=== PATIENT | male | born 1965 | race Caucasian/White ===

== ENCOUNTER → 2016-04-03 | Outpatient (CLI) | payer MEDICARE ==
[~2016-04-03] MED LIST: ALPR0.5T10 PO; CYCL10TA2 PO; ESOM40CA PO; GLIM4TAB PO; HYDR-2666 PO; ONDA4TAB7 PO; PROAIR HFA8.5 GM IH
--- NOTE | 2016-04-03 11:34 | KCIC ---
MRI lumbar spine without contrast Indication: Low back pain and left lower extremity radiculopathy. Multiplanar multi sequence imaging of the lumbar spine was performed without contrast. Curvature of the lumbar spine is normal. Minimal retrolisthesis of L4 on L5 is seen. The vertebral body heights are well maintained. No acute compression fracture or geographic marrow lesion is identified. There is normal height and hydration to the lumbar discs apart from mild desiccation and disc space narrowing at L4-5 level. L1-2: No central canal or neural foraminal stenosis is detected. L2-3: Unremarkable. L3-4: Unremarkable. L4-5: There is wide-based midline disc bulge producing slight indentation upon the ventral thecal sac, however, no central canal or neural foraminal stenosis is identified. L5-S1: Unremarkable. The paraspinous tissues are unremarkable. Impression: Mild L4-5 degenerative disc disease and mild wide-based midline disc bulge. No central canal or neural foraminal stenosis is detected. Electronically signed by: Jarek Khan MD (Apr 03, 2016 11:33:34)
== END | disposition home or self-care (01) ==
LOC: KCIC MRI 10:49
PROVIDERS: ATTEND Nurse Practitioner Family
DX: M54.17 Radiculopathy, lumbosacral region (principal)
CPT/HCPCS: 72148

== ENCOUNTER 2016-06-09 22:36 | Emergency (ER) | payer MEDICARE ==
[~2016-06-09] VITALS: Ht 177.8 cm; Wt 83.9 kg
[2016-06-09] MEDS ORDERED: IPRATRPIUM/ALBUTEROL 0.5/2.5MG 3 ML NEBU. NEB ONE (23:15)
[2016-06-09 23:38] LABS: CALCIUM 8.4 mg/dL (8.5-10.1); GFR 79.4; POTASSIUM 3.3 mmol/L (3.5-5.1)
--- NOTE | 2016-06-09 23:39 | PHYS DOC ---
Past Medical History Past Medical History: Asthma, Bronchitis, Other Additional Past Medical Histor: non-hodgkins lymphoma - remission, histoplasmosis Past Surgical History: Tonsillectomy, Other Additional Past Surgical Histo: bilat arthoscopic knee, tumor removal LL back, bronch., portacath, biopsie Alcohol Use: None Drug Use: None Adult General Chief Complaint Chief Complaint: SHORTNESS OF BREATH HPI HPI Patient is a 50 year old male who presents with cough and central chest tightness for the past 1.5 week. Started with cough, dyspnea, f/c, myalgia. He saw his PCP and was placed on prednisone burst, that he finished yesterday. He was improving, but symptoms worsened today. He denies current fever, abdominal pain, leg pain or swelling, or hemoptysis. Review of Systems Review of Systems Constitutional: Had fever and chills [] Eyes: Denies change in visual acuity, redness, or eye pain [] HENT: Denies nasal congestion or sore throat [] Respiratory: Has cough and shortness of breath [] Cardiovascular: No additional information not addressed in HPI [] GI: Denies abdominal pain, nausea, vomiting, bloody stools or diarrhea [] : Denies dysuria or hematuria [] Musculoskeletal: Denies back pain or joint pain [] Integument: Denies rash or skin lesions [] Neurologic: Denies headache, focal weakness or sensory changes [] Endocrine: Denies polyuria or polydipsia [] Current Medications Current Medications Current Medications Medications (Trade) Dose Ordered Sig/Cece Start Time Stop Time Status Last Admin Dose Admin Albuterol/ Ipratropium (Duoneb) 3 ml 1X ONCE 06/09/16 23:15 06/09/16 23:16 DC 06/10/16 00:04 3 ML Allergies Allergies Allergies Coded Allergies Type Severity Reaction Last Updated Verified prochlorperazine edisylate Allergy Intermediate Nausea and Vomiting 04/17/13 Yes prochlorperazine maleate Allergy Intermediate Nausea and Vomiting 04/17/13 Yes Physical Exam Physical Exam Constitutional: Well developed, well nourished, no acute distress, non-toxic appearance. [] HENT: Normocephalic, atraumatic, bilateral external ears normal, oropharynx moist, no oral exudates, nose normal. [] Eyes: PERRLA, EOMI, conjunctiva normal, no discharge. [] Neck: Normal range of motion, supple, no stridor. [] Cardiovascular:Heart rate regular rhythm, no murmur [] Lungs & Thorax: Mild bilateral wheezing, normal respiratory effort, speaking in full sentences, no crackles [] Abdomen: Bowel sounds normal, soft, no tenderness. [] Skin: Warm, dry, no erythema, no rash. [] Back: Normal range of motion. [] Extremities: No tenderness, ROM intact, no edema, no palpable cord. [] Neurologic: Alert and oriented X 3, normal motor function, normal sensory function, no focal deficits noted. [] Psychologic: Affect normal, judgement normal, mood normal. [] Current Patient Data Vital Signs Vital Signs Date Time Temp Pulse Resp B/P Pulse Ox O2 Delivery O2 Flow Rate FiO2 06/10/16 00:05 97 Room Air 06/09/16 22:45 98.6 85 25 155/82 98.6 Lab Values Laboratory Tests Test 06/09/16 23:05 Sodium Level 141mmol/L (136-145) Potassium Level 3.3mmol/L (3.5-5.1) L Chloride Level 105mmol/L (98-107) Carbon Dioxide Level 29mmol/L (21-32) Anion Gap 7 (6-14) Blood Urea Nitrogen 18mg/dL (8-26) Creatinine 1.0mg/dL (0.7-1.3) Estimated GFR (Cockcroft-Gault) 79.4 Glucose Level 180mg/dL (70-99) H Calcium Level 8.4mg/dL (8.5-10.1) L Troponin I Quantitative < 0.017ng/mL (0.000-0.055) Laboratory Tests 06/09/16 23:05 EKG EKG EKG as interpreted by me with sinus rhythm with right bundle branch block, rate 85, no ST-T changes, normal intervals, no ectopy Radiology/Procedures Radiology/Procedures Chest x-ray as interpreted by me with no acute cardiopulmonary disease process; similar to prior imaging with chronic prominent interstitial markings in the left lung field and right lower lung field Course & Med Decision Making Course & Med Decision Making Pertinent Labs and Imaging studies reviewed. (See chart for details) Workup is unremarkable. He is feeling better after medications here. Suspect viral upper respiratory infection causing asthma exacerbation. Will place on steroid taper due to continued symptoms. Return precautions given. He understands and agrees with plan. Dragon Disclaimer Dragon Disclaimer This electronic medical record was generated, in whole or in part, using a voice recognition dictation system. Departure Departure Impression: Primary Impression: Asthma exacerbation Disposition: 01 HOME, SELF-CARE Condition: STABLE Referrals: ELI AL (PCP) Patient Instructions: Asthma, Adult, [id number] Additional Instructions: Take prednisone as prescribed. Continue breathing treatments at home as needed for symptoms. Follow-up with your primary care doctor within one week. Return for any concerns. Scripts Prednisone 10 Mg [id number] Mg PO DAILY #30 TAB Take 50 mg (5 pills) daily for 2 days, then take 40 mg (4 pills) daily for 2 days, then take 30 mg (3 pills) daily for 2 days, then take 20 mg (2 pills) daily for 2 days, then take 10 mg for 2 days. Prov:Tammy HDEZ MD 06/09/16 Tammy HDEZ MD Jun 09, 2016 23:39
[2016-06-09] MEDS ORDERED: PRED-220 PO (23:57)
[2016-06-10 00:15] VITALS: BP 152/77
--- NOTE | 2016-06-10 00:24 | EKG ---
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
--- NOTE | 2016-06-10 08:07 | RAD ---
Chest, 2 views, 06/09/2016: History: Cough Comparison is made to a study from 04/04/2015. The heart size and pulmonary vascularity are normal. There are surgical clips anteromedially in the left upper chest. There is mild associated volume loss in the left chest. There is mild unchanged prominence of the pulmonary markings in the left upper lobe, probably due to scarring. No acute infiltrate is seen. There is a suggestion of a calcified pleural plaque along the dome of the left hemidiaphragm. There is no evidence of pleural fluid. Mild spurring is present in the spine. IMPRESSION: 1. Chronic findings as described above. 2. No acute abnormality is detected.
== END 2016-06-10 00:40 | disposition home or self-care (01) ==
LOC: ER 22:36
DX: J45.901 Unspecified asthma with (acute) exacerbation (principal); M79.1 Myalgia; Z88.8 Allergy status to other drugs, medicaments and biological substances; Z85.72 Personal history of non-Hodgkin lymphomas
CPT/HCPCS: 36415; 71020; 80048; 84484; 93005; 94640; 99285; J7620

== ENCOUNTER → 2016-11-05 | Outpatient (CLI) | payer MEDICARE ==
[~2016-11-05] MED LIST changes: -HYDR-2666 PO; +HYDR-2758 PO; +PRED-220 PO
--- NOTE | 2016-11-05 11:00 | KCIC ---
Examination: 2 views of the chest HISTORY: History of cough, dyspnea, smoking COMPARISON: 04/04/2015 FINDINGS: Low lung volumes accentuate heart and pulmonary vascularity. Mild prominent appearing bilateral interstitial lung markings likely chronic interstitial changes are similar to prior exam. IMPRESSION: Prominent appearing bilateral interstitial lung markings likely chronic interstitial changes similar to prior exam. Electronically signed by: Shahriar Weems MD (11/05/2016 10:57 AM) [facility]
== END | disposition home or self-care (01) ==
LOC: KCIC 10:12
PROVIDERS: ATTEND Family Medicine
DX: R91.8 Other nonspecific abnormal finding of lung field (principal); R05 Cough; R06.00 Dyspnea, unspecified; F17.200 Nicotine dependence, unspecified, uncomplicated
CPT/HCPCS: 71020

== ENCOUNTER 2017-01-08 00:29 | Emergency (ER) | payer MEDICARE ==
[~2017-01-08] VITALS: Ht 180.3 cm; Wt 83.0 kg
[2017-01-08] MEDS ORDERED: IV NORMAL SALINE 1000ML BAG 1,000 ML IV SCH (00:45)
--- NOTE | 2017-01-08 00:57 | PHYS DOC ---
Past Medical History Past Medical History: Asthma, Bronchitis, Diabetes-Type II, GERD, High Cholesterol, Hypertension, Other Additional Past Medical Histor: non-hodgkins lymphoma - remission, histoplasmosis Past Surgical History: Tonsillectomy, Other Additional Past Surgical Histo: bilat arthoscopic knee, tumor removal LL back, bronch., portacath, biopsy Smoking: Cigarettes Alcohol Use: None Drug Use: None Adult General Chief Complaint Chief Complaint: Palpitations HPI HPI Patient is a 51 year old male who presents with heart palpitations. He is followed by his PCP in [place], [place]. He states tonight at around 1800 p.m. he noticed his heart beating fast. He states he's had intermittent episodes of this in the past. This seems to be more persistent tonight. No recent travel. No chest pain. No shortness of breath. No recent fever sore throat cough or cold symptoms. FH: remote CAD (grandparents); POS tobacco; POS DM and HTN. Review of Systems Review of Systems Constitutional: Denies fever or chills Eyes: Denies change in visual acuity, redness, or eye pain HENT: Denies nasal congestion or sore throat Respiratory: Denies cough or shortness of breath Cardiovascular: No chest pain GI: Denies abdominal pain, nausea, vomiting, bloody stools or diarrhea : Denies dysuria or hematuria Musculoskeletal: Denies back pain or joint pain Integument: Denies rash or skin lesions Neurologic: Denies headache, focal weakness or sensory changes Endocrine: Denies polyuria or polydipsia All other systems were reviewed and found to be within normal limits, except as documented in this note. Family History Family History Remote CAD (in grandparents) Current Medications Current Medications Current Medications Medications (Trade) Dose Ordered Sig/Cece Start Time Stop Time Status Last Admin Dose Admin Sodium Chloride 1,000 ml @ 100 mls/hr Q10H 01/08/17 00:45 01/08/17 10:44 01/08/17 01:24 100 MLS/HR Allergies Allergies Allergies Coded Allergies Type Severity Reaction Last Updated Verified prochlorperazine edisylate Allergy Intermediate Nausea and Vomiting 04/17/13 Yes prochlorperazine maleate Allergy Intermediate Nausea and Vomiting 04/17/13 Yes Physical Exam Physical Exam Constitutional: Well developed, well nourished, no acute distress, non-toxic appearance. HENT: Normocephalic, atraumatic, bilateral external ears normal, oropharynx moist, no oral exudates, nose normal. Eyes: PERRLA, EOMI, conjunctiva normal, no discharge. Neck: Normal range of motion, no tenderness, supple, no stridor. Cardiovascular:Heart rate regular rhythm, tachycardic, no murmur Lungs & Thorax: Bilateral breath sounds clear to auscultation Abdomen: Bowel sounds normal, soft, no tenderness, no masses, no pulsatile masses. Skin: Warm, dry, no erythema, no rash. Back: No tenderness, no CVA tenderness. Extremities: No tenderness, no cyanosis, no clubbing, ROM intact, no edema. No calf pain, swelling or tenderness. Neurologic: Alert and oriented X 3, normal motor function, normal sensory function, no focal deficits noted. Psychologic: Affect normal, judgement normal, mood normal. Current Patient Data Vital Signs Vital Signs Date Time Temp Pulse Resp B/P (MAP) Pulse Ox O2 Delivery O2 Flow Rate FiO2 01/08/17 00:35 98.0 93 20 126/70 (88) 97 Room Air 98.0 Lab Values Laboratory Tests Test 01/08/17 01:15 White Blood Count 13.7 x10^3/uL (4.0-11.0) H Red Blood Count 5.49 x10^6/uL (4.30-5.70) Hemoglobin 15.8 g/dL (13.0-17.5) Hematocrit 47.6 % (39.0-53.0) Mean Corpuscular Volume 87 fL (79-100) Mean Corpuscular Hemoglobin 29 pg (25-35) Mean Corpuscular Hemoglobin Concent 33 g/dL (31-37) Red Cell Distribution Width 13.5 % (11.5-14.5) Platelet Count 273 x10^3/uL (140-400) Neutrophils (%) (Auto) 62 % (31-73) Lymphocytes (%) (Auto) 27 % (24-48) Monocytes (%) (Auto) 8 % (0-9) Eosinophils (%) (Auto) 2 % (0-3) Basophils (%) (Auto) 1 % (0-3) Neutrophils # (Auto) 8.5 x10^3uL (1.8-7.7) H Lymphocytes # (Auto) 3.6 x10^3/uL (1.0-4.8) Monocytes # (Auto) 1.1 x10^3/uL (0.0-1.1) Eosinophils # (Auto) 0.3 x10^3/uL (0.0-0.7) Basophils # (Auto) 0.1 x10^3/uL (0.0-0.2) D-Dimer (Roxane) < 0.27 ug/mlFEU Sodium Level 143 mmol/L (136-145) Potassium Level 4.2 mmol/L (3.5-5.1) Chloride Level 104 mmol/L (98-107) Carbon Dioxide Level 29 mmol/L (21-32) Anion Gap 10 (6-14) Blood Urea Nitrogen 12 mg/dL (8-26) Creatinine 0.8 mg/dL (0.7-1.3) Estimated GFR (Cockcroft-Gault) 102.3 BUN/Creatinine Ratio 15 (6-20) Glucose Level 143 mg/dL (70-99) H Calcium Level 9.5 mg/dL (8.5-10.1) Magnesium Level 2.0 mg/dL (1.8-2.4) Total Bilirubin 0.2 mg/dL (0.2-1.0) Aspartate Amino Transferase (AST) 17 U/L (15-37) Alanine Aminotransferase (ALT) 29 U/L (16-63) Alkaline Phosphatase 100 U/L (46-116) Creatine Kinase 59 U/L (39-308) Creatine Kinase MB (Mass) < 0.5 ng/mL (0.0-3.6) Creatine Kinase MB Relative Index 0.8 % (0-4) Troponin I Quantitative < 0.017 ng/mL (0.000-0.055) MT-Wgq-N-Type Natriuretic Peptide 46 pg/mL (0-124) Total Protein 7.5 g/dL (6.4-8.2) Albumin 3.7 g/dL (3.4-5.0) Albumin/Globulin Ratio 1.0 (1.0-1.7) Thyroid Stimulating Hormone (TSH) 1.759 uIU/mL (0.358-3.74) Laboratory Tests 01/08/17 01:15 Laboratory Tests 01/08/17 01:15 EKG EKG EKG interpreted by myself at 0048 am: NSR rate 82, IVCD; non specific ST changes. NO change compared to EKG dated 06/09/16 Radiology/Procedures Radiology/Procedures CXR interpreted by myself at 0115 AM: normal mediastinum; normal cardiac silhouette, Atelectasis RML/or scarring (UNCHANGED from CXR 04/04/2015) Course & Med Decision Making Course & Med Decision Making Evaluated patient upon arrival. He is sinus tachycardic. EKG unchanged from prior. Will check lab , D dimer and thyroid. At 0230 AM: patient watching TV. Family in room. BP 121/67; P 91. reviewed findings. Repeat Trop 0.00; They will call PCP in am to set up outpatient event monitoring. differential includes thyroid disease; cardiac disease, pulmonary emboli; electrolyte disorder I have spoken with the patient and/or caregivers. I have explained the patient' s condition, diagnosis and treatment plan based on the information available to me at this time. I have answered the patient's and/or caregiver's questions and addressed any concerns. The patient and/or caregivers have as good an understanding of the patient's diagnosis, condition and treatment plan as can be expected at this point. The patient's condition is stable and appropriate for discharge from the emergency department. The patient will pursue further outpatient evaluation with the primary care physician or other designated or consulting physician as outlined in the discharge instructions. The patient and/or caregivers are agreeable to this plan of care and follow-up instructions have been explained in detail. The patient and/or caregivers have received these instructions in written format and have expressed an understanding of the discharge instructions. The patient and/or caregivers are aware that any significant change in condition or worsening of symptoms should prompt an immediate return to this or the closest emergency department or a call to 911. Dragon Disclaimer Dragon Disclaimer This electronic medical record was generated, in whole or in part, using a voice recognition dictation system. Departure Departure Impression: Primary Impression: Palpitations Disposition: 01 HOME, SELF-CARE Condition: STABLE Referrals: ELI AL (PCP) Patient Instructions: Palpitations Additional Instructions: YOUR BLOOD WORK WAS NORMAL HERE. CALL YOUR DOCTOR IN THE AM TO SET UP EVENT MONITORING. NEWTON HERNANDEZ MD Jan 08, 2017 00:57
[2017-01-08 01:22] LABS: BASO # 0.1 x10^3/uL (0.0-0.2); BASO % 1 % (0-3); EOS % 2 % (0-3); HEMATOCRIT 47.6 % (39.0-53.0); HEMOGLOBIN 15.8 g/dL (13.0-17.5); LYMPH # 3.6 x10^3/uL (1.0-4.8); LYMPH % 27 % (24-48); MEAN CORPUSCULAR HEMOGLOBIN 29 pg (25-35); MEAN CORPUSCULAR HGB CONC 33 g/dL (31-37); MEAN CORPUSCULAR VOLUME 87 fL (79-100); MONO % 8 % (0-9); NEUT % 62 % (31-73); PLATELET COUNT 273 x10^3/uL (140-400); RED BLOOD COUNT 5.49 x10^6/uL (4.30-5.70); RED CELL DISTRIBUTION WIDTH 13.5 % (11.5-14.5); WHITE BLOOD COUNT 13.7 x10^3/uL (4.0-11.0)
[2017-01-08 01:35] LABS: CALCIUM 9.5 mg/dL (8.5-10.1); CREATININE 0.8 mg/dL (0.7-1.3); GFR 102.3; POTASSIUM 4.2 mmol/L (3.5-5.1)
[2017-01-08 01:41] LABS: ALBUMIN 3.7 g/dL (3.4-5.0); TOTAL BILIRUBIN 0.2 mg/dL (0.2-1.0); TOTAL PROTEIN 7.5 g/dL (6.4-8.2)
[2017-01-08 01:48] LABS: CREATINE KINASE 59 U/L (39-308)
[2017-01-08 01:53] LABS: CKMB MASS < 0.5 ng/mL (0.0-3.6)
[2017-01-08 02:38] VITALS: BP 118/65
--- NOTE | 2017-01-08 06:21 | EKG ---
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
--- NOTE | 2017-01-08 07:30 | RAD ---
EXAM: Chest one view. HISTORY: Palpitations, smoking history, lung disease. COMPARISON: 11/05/2016. FINDINGS: A frontal view of the chest is obtained. There are no confluent infiltrates. There is no pneumothorax or pleural effusion. The heart is not enlarged. Surgical clips project along the left superior mediastinal border. There are stable mild interstitial opacities and mild volume loss on the left. Calcified mediastinal lymph nodes are likely secondary to old granulomatous disease. IMPRESSION: 1. Correlate for prior partial pneumonectomy on the left. No acute infiltrates.
== END 2017-01-08 03:05 | disposition home or self-care (01) ==
LOC: ER 00:29
DX: R00.2 Palpitations (principal); R00.0 Tachycardia, unspecified; J45.909 Unspecified asthma, uncomplicated; E11.9 Type 2 diabetes mellitus without complications; K21.9 Gastro-esophageal reflux disease without esophagitis; E78.00 Pure hypercholesterolemia, unspecified; I10 Essential (primary) hypertension; F17.210 Nicotine dependence, cigarettes, uncomplicated; Z88.8 Allergy status to other drugs, medicaments and biological substances
CPT/HCPCS: 36415; 71010; 80053; 82553; 83735; 83880; 84436; 84443; 84484; 85025; 85379; 93005; 96360; 96361; 99285; J7030

== ENCOUNTER 2018-11-29 01:03 | Emergency (ER) | payer MEDICARE ==
[~2018-11-29] VITALS: Ht 180.3 cm; Wt 83.9 kg
[~2018-11-29 01:03] MED LIST changes: +ALBU2.5V8 IH; -HYDR-2758 PO; +HYDR-2761 PO; -PROAIR HFA8.5 GM IH
--- NOTE | 2018-11-29 01:32 | PHYS DOC ---
Past Medical History Past Medical History: Asthma, Bronchitis, Diabetes-Type II, GERD, High Cholesterol, Hypertension, Other Additional Past Medical Histor: non-hodgkins lymphoma - remission, histoplasmosis, back pain Past Surgical History: Tonsillectomy, Other Additional Past Surgical Histo: bilat arthoscopic knee, tumor removal LL back, bronch., portacath, biopsy Alcohol Use: None Drug Use: None Adult General Chief Complaint Chief Complaint: SHORTNESS OF BREATH HPI HPI Patient is a 53-year-old male who presents with complaint of productive cough for the last couple of weeks. He states that over the last few days he has started to get some shortness of breath associated with the cough and tonight shortness of breath and gotten so severe that it woke him up from sleep and he sat bolt upright in bed, severely short of breath. He states that the shortness of breath is a little bit better at this time. He does indicate the shortness of breath is worsened with exertion. He denies any chest pain. He also denies any lower extremity pain or swelling. Patient is not aware of any fever. He states the cough has been productive of yellow sputum. He is concerned that he has either bronchitis or pneumonia.[] Review of Systems Review of Systems Constitutional: Denies fever or chills [] Respiratory: Positive cough and shortness of breath [] Cardiovascular: No additional information not addressed in HPI [] GI: Denies abdominal pain, nausea, vomiting or diarrhea [] Integument: Denies rash or skin lesions [] Neurologic: Denies headache, focal weakness or sensory changes [] All other systems were reviewed and found to be within normal limits, except as documented in this note. Current Medications Current Medications Current Medications Medications (Trade) Dose Ordered Sig/Cece Start Time Stop Time Status Last Admin Dose Admin Albuterol/ Ipratropium (Duoneb) 3 ml 1X ONCE 11/29/18 04:00 11/29/18 04:01 DC 11/29/18 04:01 3 ML Ceftriaxone Sodium (Rocephin) 1 gm 1X ONCE 11/29/18 03:30 11/29/18 03:31 DC 11/29/18 04:05 1 GM Allergies Allergies Allergies Coded Allergies Type Severity Reaction Last Updated Verified prochlorperazine edisylate Allergy Intermediate Nausea and Vomiting 04/17/13 Yes prochlorperazine maleate Allergy Intermediate Nausea and Vomiting 04/17/13 Yes Physical Exam Physical Exam Constitutional: Well developed, well nourished, no acute distress, non-toxic appearance. [] HENT: Normocephalic, atraumatic, bilateral external ears normal, oropharynx moist, no oral exudates, nose normal. [] Eyes: PERRLA, EOMI, conjunctiva normal, no discharge. [] Neck: Normal range of motion, no tenderness, supple, no stridor. [] Cardiovascular: Mildly tachycardic rate with regular rhythm[] Lungs & Thorax: Slightly diminished breath sounds noted in the lung bases with fine rhonchi to auscultation [] Abdomen: Bowel sounds normal, soft, no tenderness. [] Skin: Warm, dry, no erythema, no rash. [] Extremities: No tenderness, no cyanosis, no clubbing, ROM intact, no edema. [] Neurologic: Alert and oriented X 3, no focal deficits noted. [] Current Patient Data Vital Signs Vital Signs Date Time Temp Pulse Resp B/P (MAP) Pulse Ox O2 Delivery O2 Flow Rate FiO2 11/29/18 04:30 91 156/88 (110) 93 Room Air 11/29/18 02:30 19 11/29/18 01:05 97.8 97.8 Lab Values Laboratory Tests Test 11/29/18 01:25 11/29/18 02:00 White Blood Count 12.4 x10^3/uL (4.0-11.0) H Red Blood Count 5.85 x10^6/uL (4.30-5.70) H Hemoglobin 16.7 g/dL (13.0-17.5) Hematocrit 49.8 % (39.0-53.0) Mean Corpuscular Volume 85 fL (79-100) Mean Corpuscular Hemoglobin 29 pg (25-35) Mean Corpuscular Hemoglobin Concent 34 g/dL (31-37) Red Cell Distribution Width 14.7 % (11.5-14.5) H Platelet Count 268 x10^3/uL (140-400) Neutrophils (%) (Auto) 66 % (31-73) Lymphocytes (%) (Auto) 24 % (24-48) Monocytes (%) (Auto) 7 % (0-9) Eosinophils (%) (Auto) 2 % (0-3) Basophils (%) (Auto) 1 % (0-3) Neutrophils # (Auto) 8.2 x10^3/uL (1.8-7.7) H Lymphocytes # (Auto) 2.9 x10^3/uL (1.0-4.8) Monocytes # (Auto) 0.9 x10^3/uL (0.0-1.1) Eosinophils # (Auto) 0.3 x10^3/uL (0.0-0.7) Basophils # (Auto) 0.1 x10^3/uL (0.0-0.2) D-Dimer (Roxane) 0.28 ug/mlFEU (0.00-0.50) Sodium Level 143 mmol/L (136-145) Potassium Level 3.8 mmol/L (3.5-5.1) Chloride Level 103 mmol/L (98-107) Carbon Dioxide Level 30 mmol/L (21-32) Anion Gap 10 (6-14) Blood Urea Nitrogen 13 mg/dL (8-26) Creatinine 0.9 mg/dL (0.7-1.3) Estimated GFR (Cockcroft-Gault) 88.6 BUN/Creatinine Ratio 14 (6-20) Glucose Level 243 mg/dL (70-99) H Lactic Acid Level 2.6 mmol/L (0.4-2.0) H Calcium Level 9.9 mg/dL (8.5-10.1) Total Bilirubin 0.2 mg/dL (0.2-1.0) Aspartate Amino Transferase (AST) 22 U/L (15-37) Alanine Aminotransferase (ALT) 27 U/L (16-63) Alkaline Phosphatase 117 U/L (46-116) H Troponin I Quantitative < 0.017 ng/mL (0.000-0.055) BQ-Rmz-F-Type Natriuretic Peptide 55 pg/mL (0-124) Total Protein 8.4 g/dL (6.4-8.2) H Albumin 4.2 g/dL (3.4-5.0) Albumin/Globulin Ratio 1.0 (1.0-1.7) Urine Collection Type Unknown Urine Color Yellow Urine Clarity Clear Urine pH 6.0 Urine Specific [place] >=1.030 Urine Protein Negative mg/dL (NEG-TRACE) Urine Glucose (UA) >=1000 mg/dL (NEG) Urine Ketones (Stick) Negative mg/dL (NEG) Urine Blood Negative (NEG) Urine Nitrite Negative (NEG) Urine Bilirubin Negative (NEG) Urine Urobilinogen Dipstick 1.0 mg/dL (0.2 mg/dL) Urine Leukocyte Esterase Negative (NEG) Urine RBC Occ /HPF (0-2) Urine WBC Rare /HPF (0-4) Urine Squamous Epithelial Cells Occ /LPF Urine Bacteria 0 /HPF (0-FEW) Urine Mucus Slight /LPF Laboratory Tests 11/29/18 01:25 Laboratory Tests 11/29/18 01:25 EKG EKG [] Radiology/Procedures Radiology/Procedures [] Course & Med Decision Making Course & Med Decision Making Pertinent Labs and Imaging studies reviewed. (See chart for details) Patient moved to room upon arrival was evaluated by your medical staff after which an IV was established and blood work was drawn. A chest x-ray was obtained and demonstrates findings of interstitial infiltrates. Patient was given a total of 2 breathing treatments while in the emergency room and did report some improvement in symptoms. His oxygen saturation on room air remains 94-95%. I did discuss option of admission versus discharge home with outpatient antibiotics and patient indicates that he would prefer to be discharged home. Patient instructed to follow-up with his primary care provider in the next week and return to the emergency room immediately if symptoms worsen. Dragon Disclaimer Dragon Disclaimer This electronic medical record was generated, in whole or in part, using a voice recognition dictation system. Departure Departure Impression: Primary Impression: Community acquired pneumonia Disposition: 01 HOME, SELF-CARE Condition: STABLE Referrals: ELI AL (PCP) Patient Instructions: Pneumonia, Adult Scripts Levofloxacin (LEVAQUIN) 750 Mg Tablet 1 TAB PO DAILY for 10 Days, #10 TAB 0 Refills Prov: PILO BENITEZ Jr. DO 11/29/18 Problem Qualifiers Primary Impression: Community acquired pneumonia Laterality: unspecified laterality Qualified Codes: J18.9 - Pneumonia, unspecified organism PILO BENITEZ Jr. DO Nov 29, 2018 01:32
[2018-11-29 01:38] LABS: BASO # 0.1 x10^3/uL (0.0-0.2); BASO % 1 % (0-3); EOS # 0.3 x10^3/uL (0.0-0.7); EOS % 2 % (0-3); HEMATOCRIT 49.8 % (39.0-53.0); HEMOGLOBIN 16.7 g/dL (13.0-17.5); LYMPH # 2.9 x10^3/uL (1.0-4.8); LYMPH % 24 % (24-48); MEAN CORPUSCULAR HEMOGLOBIN 29 pg (25-35); MEAN CORPUSCULAR HGB CONC 34 g/dL (31-37); MEAN CORPUSCULAR VOLUME 85 fL (79-100); MONO # 0.9 x10^3/uL (0.0-1.1); MONO % 7 % (0-9); NEUT # 8.2 x10^3/uL (1.8-7.7); NEUT % 66 % (31-73); PLATELET COUNT 268 x10^3/uL (140-400); RED BLOOD COUNT 5.85 x10^6/uL (4.30-5.70); RED CELL DISTRIBUTION WIDTH 14.7 % (11.5-14.5); WHITE BLOOD COUNT 12.4 x10^3/uL (4.0-11.0)
[2018-11-29] MEDS ORDERED: IPRATRPIUM/ALBUTEROL 0.5/2.5MG 3 ML NEBU. NEB ONE ×2 (02:00→04:00)
[2018-11-29 02:01] LABS: CALCIUM 9.9 mg/dL (8.5-10.1); CREATININE 0.9 mg/dL (0.7-1.3); GFR 88.6; POTASSIUM 3.8 mmol/L (3.5-5.1)
[2018-11-29 02:05] LABS: ALBUMIN 4.2 g/dL (3.4-5.0); TOTAL BILIRUBIN 0.2 mg/dL (0.2-1.0); TOTAL PROTEIN 8.4 g/dL (6.4-8.2)
[2018-11-29 02:32] LABS: BILIRUBIN,URINE NEGATIVE (NEG); CLARITY,URINE CLEAR; COLOR,URINE YELLOW; NITRITE,URINE NEGATIVE (NEG); PROTEIN,URINE NEGATIVE (NEG-TRACE)
[2018-11-29 02:49] LABS: BACTERIA,URINE 0 /HPF (0-FEW); RBC,URINE OCC /HPF (0-2); SQUAMOUS EPITHELIAL CELL,UR OCC /LPF; WBC,URINE RARE /HPF (0-4)
[2018-11-29] MEDS ORDERED: LEVO750T31 PO (03:23)
[2018-11-29] MEDS ORDERED: cefTRIAXone IV Push 1 GM VIAL. IVP ONE (03:30)
[2018-11-29 04:30] VITALS: BP 156/88
--- NOTE | 2018-11-29 08:14 | RAD ---
CHEST PA LATERAL History: Shortness of breath, cough Comparison: November 05, 2016 Findings: 2 views of the chest are submitted. Cardiac silhouette is stable. There is atherosclerotic calcification near aortic arch. No pneumothorax or significant dependent pleural fluid is identified. There is scattered somewhat reticular opacity bilaterally although findings very similar compared with previous exam. Impression: 1. No acute radiographic abnormality is identified. Electronically signed by: Rahul Rodriguez MD (11/29/2018 8:11 AM) [facility]
--- NOTE | 2018-11-29 12:26 | EKG ---
[facility] [address] [place] [address] Test Date: 2018-11-29 Test Time: 01:38:28 Pat Name: EDGARD CHEEMA Department: Room: Gender: M [employer]: : 1965 Requested By: PILO BENITEZ Order Number: [id number] Reading MD: Zacarias Ryan MD Measurements Intervals Randall Rate: 106 P: 24 NH: 168 QRS: 54 QRSD: 144 T: 38 QT: 362 QTc: 483 Interpretive Statements SINUS TACHYCARDIA RIGHT BUNDLE BRANCH BLOCK RVH WITH REPOLARIZATION ABNORMALITY Electronically Signed On 12-07-2018 9:23:49 CDT by Zacarias Ryan MD
[2018-11-30] MEDS ORDERED: PIOG15TA42 PO (14:21)
[2018-11-30] MEDS ORDERED: CRESTOR20 MG PO (14:21)
[2018-11-30] MEDS ORDERED: LISI-334 PO (14:21)
[2018-11-30] MEDS ORDERED: METF10007 PO (14:21)
[2018-11-30] MEDS ORDERED: IBUP-1060 PO (14:21)
[2018-11-30] MEDS ORDERED: ASPI-630 PO (14:21)
== END 2018-11-29 04:38 | disposition home or self-care (01) ==
LOC: ER 01:03
DX: J18.9 Pneumonia, unspecified organism (principal); J45.909 Unspecified asthma, uncomplicated; E11.9 Type 2 diabetes mellitus without complications; K21.9 Gastro-esophageal reflux disease without esophagitis; E78.00 Pure hypercholesterolemia, unspecified; I10 Essential (primary) hypertension; Z90.89 Acquired absence of other organs
CPT/HCPCS: 99285; J0696; J7620; 36415; 71046; 80053; 81001; 83605; 83880; 84484; 85025; 85379; 87040; 93005; 94640; 96374

== ENCOUNTER 2018-11-30 08:51 | Inpatient (IN) | payer MEDICARE ==
[~2018-11-30] VITALS: Ht 180.3 cm; Wt 83.9 kg
[2018-11-30] VITALS (7 sets, daily range): BP systolic 156–192; BP diastolic 82–92
[~2018-11-30 08:51] MED LIST changes: +LEVO750T31 PO
[2018-11-30] MEDS ORDERED: IPRATRPIUM/ALBUTEROL 0.5/2.5MG 3 ML NEBU. NEB ONE (09:15)
[2018-11-30 09:20] LABS: BASO # 0.2 x10^3/uL (0.0-0.2); BASO % 1 % (0-3); EOS # 0.3 x10^3/uL (0.0-0.7); EOS % 2 % (0-3); HEMATOCRIT 50.4 % (39.0-53.0); LYMPH # 3.7 x10^3/uL (1.0-4.8); LYMPH % 27 % (24-48); MEAN CORPUSCULAR HEMOGLOBIN 29 pg (25-35); MEAN CORPUSCULAR HGB CONC 34 g/dL (31-37); MEAN CORPUSCULAR VOLUME 85 fL (79-100); MONO % 8 % (0-9); NEUT # 8.3 x10^3/uL (1.8-7.7); NEUT % 62 % (31-73); PLATELET COUNT 255 x10^3/uL (140-400); RED BLOOD COUNT 5.94 x10^6/uL (4.30-5.70); RED CELL DISTRIBUTION WIDTH 14.6 % (11.5-14.5); WHITE BLOOD COUNT 13.5 x10^3/uL (4.0-11.0)
--- NOTE | 2018-11-30 09:30 | RAD ---
Study: PORTABLE CHEST 1V Indication: Dyspnea. Comparison: 11/29/2018 Findings: No pneumothorax, layering effusion or lobar infiltrate. Calcification along the left hemidiaphragm again noted. Unchanged configuration of the cardiomediastinal silhouette and hilar structures. No free air seen under the diaphragm. Impression: Unchanged radiographic appearance of the chest from 11/29/2018. Electronically signed by: REBECCA EATON MD (11/30/2018 9:27 AM) [id number]
--- NOTE | 2018-11-30 09:38 | PHYS DOC ---
Past Medical History Past Medical History: Asthma, Bronchitis, Diabetes-Type II, GERD, High Cholesterol, Hypertension, Other Additional Past Medical Histor: non-hodgkins lymphoma - remission, histoplasmosis, back pain Past Surgical History: Tonsillectomy, Other Additional Past Surgical Histo: bilat arthoscopic knee, tumor removal LL back, bronch., portacath, biopsy Additional Information: 1 PPD Alcohol Use: None Drug Use: None Adult General Chief Complaint Chief Complaint: SHORTNESS OF BREATH HPI HPI 53-year-old male presents to the emergency Department complaints of shortness of breath, cough with yellow sputum production. Patient denies any fever. Patient states he was seen yesterday and was plan for admission however states he didn't have childcare. He was sent home with antibiotic therapy that included Levaquin by mouth. Patient states shortness of breath was worse today which brought him back. He does describe tobacco use usually one pack per day. She denies any nausea, vomiting, chest pain, fever. Patient denies any headache or visual change. Review of Systems Review of Systems Constitutional: Denies fever or chills [] HENT: Denies nasal congestion or sore throat [] Respiratory: Cough, shortness of breath Cardiovascular: No additional information not addressed in HPI [] GI: Denies abdominal pain, nausea, vomiting, bloody stools or diarrhea [] Musculoskeletal: Denies back pain or joint pain [] Integument: Denies rash or skin lesions [] Neurologic: Denies headache, focal weakness or sensory changes [] All other systems were reviewed and found to be within normal limits, except as documented in this note. Current Medications Current Medications Current Medications Medications (Trade) Dose Ordered Sig/Cece Start Time Stop Time Status Last Admin Dose Admin Acetaminophen (Tylenol) 650 mg PRN Q4HRS PRN 11/30/18 10:45 12/01/18 10:44 Albuterol/ Ipratropium (Duoneb) 3 ml RTQID 11/30/18 12:00 12/01/18 11:59 Levofloxacin/ Dextrose 150 ml @ 100 mls/hr 1X ONCE 11/30/18 10:45 11/30/18 12:14 11/30/18 11:07 100 MLS/HR Ondansetron HCl (Zofran) 4 mg PRN Q8HRS PRN 11/30/18 10:45 12/01/18 10:44 Sodium Chloride 1,000 ml @ 1,000 mls/hr 1X ONCE 11/30/18 11:15 11/30/18 12:14 11/30/18 11:07 1,000 MLS/HR Allergies Allergies Allergies Coded Allergies Type Severity Reaction Last Updated Verified prochlorperazine edisylate Allergy Intermediate Nausea and Vomiting 04/17/13 Yes prochlorperazine maleate Allergy Intermediate Nausea and Vomiting 04/17/13 Yes Physical Exam Physical Exam Constitutional: Well developed, well nourished, mild SOB, non-toxic appearance. [] HENT: Normocephalic, atraumatic, bilateral external ears normal, oropharynx moist, no oral exudates, nose normal. [] Eyes: PERRLA, EOMI, conjunctiva normal, no discharge. [] Cardiovascular: tachycardia Lungs & Thorax: coarse bs bilaterally, + wheeze Abdomen: Bowel sounds normal, soft, no tenderness, no masses, no pulsatile masses. [] Skin: Warm, dry, no erythema, no rash. [] Extremities: No tenderness, no cyanosis, no clubbing, ROM intact, no edema. [] Neurologic: Alert and oriented X 3, no focal deficits noted. [] Psychologic: Affect normal, judgement normal, mood normal. [] Current Patient Data Vital Signs Vital Signs Date Time Temp Pulse Resp B/P (MAP) Pulse Ox O2 Delivery O2 Flow Rate FiO2 11/30/18 09:26 92 Room Air 11/30/18 08:52 98.0 104 24 197/88 (124) 98.0 Lab Values Laboratory Tests Test 11/30/18 09:08 11/30/18 09:57 White Blood Count 13.5 x10^3/uL (4.0-11.0) H Red Blood Count 5.94 x10^6/uL (4.30-5.70) H Hemoglobin 17.0 g/dL (13.0-17.5) Hematocrit 50.4 % (39.0-53.0) Mean Corpuscular Volume 85 fL (79-100) Mean Corpuscular Hemoglobin 29 pg (25-35) Mean Corpuscular Hemoglobin Concent 34 g/dL (31-37) Red Cell Distribution Width 14.6 % (11.5-14.5) H Platelet Count 255 x10^3/uL (140-400) Neutrophils (%) (Auto) 62 % (31-73) Lymphocytes (%) (Auto) 27 % (24-48) Monocytes (%) (Auto) 8 % (0-9) Eosinophils (%) (Auto) 2 % (0-3) Basophils (%) (Auto) 1 % (0-3) Neutrophils # (Auto) 8.3 x10^3/uL (1.8-7.7) H Lymphocytes # (Auto) 3.7 x10^3/uL (1.0-4.8) Monocytes # (Auto) 1.0 x10^3/uL (0.0-1.1) Eosinophils # (Auto) 0.3 x10^3/uL (0.0-0.7) Basophils # (Auto) 0.2 x10^3/uL (0.0-0.2) D-Dimer (Roxane) 0.28 ug/mlFEU (0.00-0.50) Lactic Acid Level 2.1 mmol/L (0.4-2.0) H Sodium Level 142 mmol/L (136-145) Potassium Level 3.3 mmol/L (3.5-5.1) L Chloride Level 105 mmol/L (98-107) Carbon Dioxide Level 27 mmol/L (21-32) Anion Gap 10 (6-14) Blood Urea Nitrogen 14 mg/dL (8-26) Creatinine 0.8 mg/dL (0.7-1.3) Estimated GFR (Cockcroft-Gault) 101.5 BUN/Creatinine Ratio 18 (6-20) Glucose Level 172 mg/dL (70-99) H Calcium Level 9.2 mg/dL (8.5-10.1) Total Bilirubin 0.2 mg/dL (0.2-1.0) Aspartate Amino Transferase (AST) 15 U/L (15-37) Alanine Aminotransferase (ALT) 24 U/L (16-63) Alkaline Phosphatase 103 U/L (46-116) FZ-Urg-U-Type Natriuretic Peptide 119 pg/mL (0-124) Total Protein 7.9 g/dL (6.4-8.2) Albumin 3.8 g/dL (3.4-5.0) Albumin/Globulin Ratio 0.9 (1.0-1.7) L Laboratory Tests 11/30/18 09:08 Laboratory Tests 11/30/18 09:57 EKG EKG [] Radiology/Procedures Radiology/Procedures [] Course & Med Decision Making Course & Med Decision Making Pertinent Labs and Imaging studies reviewed. (See chart for details) [] 53-year-old male presents to the emergency Department complaints of shortness of breath, cough with yellow sputum production. Patient denies any fever. Patient states he was seen yesterday and was plan for admission however states he didn't have childcare. He was sent home with antibiotic therapy that included Levaquin by mouth. Patient states shortness of breath was worse today which brought him back. He does describe tobacco use usually one pack per day. She denies any nausea, vomiting, chest pain, fever. Patient denies any headache or visual change. Patient was seen yesterday for similar symptoms with planned admission however had childcare issues. He presents today with similar symptoms. Laboratory values reviewed white blood cell count 13.5, lactic acid 2.1, d-dimer 0.28. Chest x-ray does not show acute consolidation however given clinical symptoms and lactic acidosis will plan for admission. He received IV fluids 1 L in the emergency department. Levaquin 750 mg IV, blood cultures obtained. Patient was admitted with diagnosis of sepsis, Community acquired pneumonia. Dragon Disclaimer Dragon Disclaimer This electronic medical record was generated, in whole or in part, using a voice recognition dictation system. Date and Time of Reassessment Date: Nov 30, 2018 Time: 10:43 Fluid Challenge Is the fluid challenge complet: No IBW Target Volume Used: No BMI > 30: No Vital Signs Vital Signs: Vital Signs Date Time Temp Pulse Resp B/P (MAP) Pulse Ox O2 Delivery O2 Flow Rate FiO2 11/30/18 09:26 92 Room Air 11/30/18 08:52 98.0 104 24 197/88 (124) 98.0 Temperature Source: Oral Respirations Respiratory Effort: Shortness of breath Respiratory Pattern: Tachypnea Cardiovascular Pulse Rhythm: Irregular Heart: No rubs, clicks or gallop Lung Sounds Breath Sounds: Rhonchi Capillary Refil Capillary Refill: Rt Hand < 3 seconds Peripheral Pulse Pulse Location: Monitor Pulse Strength: Normal (2+) Pulse Assessment Method: NIBP Integumentary Skin: Warm, Dry Departure Departure Impression: Primary Impression: Sepsis Additional Impression: Community acquired pneumonia Disposition: ADMITTED INPATIENT Admitting Physician: ZOILA Condition: STABLE Referrals: LISA HOLGUIN MD (PCP) Problem Qualifiers KELLIE CHATMAN MD Nov 30, 2018 09:38
[2018-11-30 10:25] LABS: CALCIUM 9.2 mg/dL (8.5-10.1); CREATININE 0.8 mg/dL (0.7-1.3); GFR 101.5; POTASSIUM 3.3 mmol/L (3.5-5.1)
[2018-11-30 10:38] LABS: ALBUMIN 3.8 g/dL (3.4-5.0); ALBUMIN/GLOBULIN RATIO 0.9 (1.0-1.7); TOTAL BILIRUBIN 0.2 mg/dL (0.2-1.0); TOTAL PROTEIN 7.9 g/dL (6.4-8.2)
[2018-11-30] MEDS ORDERED: ONDANSETRON PF 4 MG/2 ML VIAL. IV PRN ×2 (10:45→15:45)
[2018-11-30] MEDS ORDERED: ACETAMINOPHEN 325 MG TABLET. PO PRN (10:45)
[2018-11-30] MEDS ORDERED: IV NORMAL SALINE 1000ML BAG 1,000 ML IV ONE (11:15)
--- NOTE | 2018-11-30 11:31 | PDOC1 ---
History and Physical Date of Admission Date of Admission DATE: 11/30/18 TIME: 11:31 Identification/Chief Complaint Chief Complaint Shortness of breath Source Source: Patient History of Present Illness History of Present Illness Mr Sparrow is a 53-year-old male w/ PMHx smoker, Asthma, Bronchitis, Diabetes- Type II, GERD, High Cholesterol, Hypertension, NHL in remission, h/o histoplasmosis with fibrosing mediastinitis, chronic back pain who presents to the emergency Department complaints of shortness of breath, cough with yellow sputum production that was sudden onset 3.5 days ago. Patient denies any fever but does have chills. Patient states he was seen yesterday and was plan for admission however states he didn't have childcare. He was sent home with antibiotic therapy that included Levaquin by mouth. Patient states shortness of breath was worse today which brought him back. He does describe tobacco use usually at least one pack per day, sometimes 1.5 ppd. He denies any nausea, vomiting, chest pain, fever. Patient denies any headache or visual change. He notes his sputum has changed from whitish to yellow. He cares for a 2, 4, and 7 year old at home, doesn't note any recent sick contacts. He does note he historically is permanently disabled 2/2 a history of NHL in the chest followed by a histoplasma infection and fibrosing mediastinitis. His last f/u outpatient was 18 months ago still in remission and negative histoplasma antigen at that time. Past Medical History Cardiovascular: HTN, Hyperlipidemia Pulmonary: Asthma, Bronchitis, Other (Histoplasmosis) GI: GERD Heme/Onc: Cancer (NHL mediastinum, in remission) Hepatobiliary: No pertinent hx Psych: Anxiety Rheumatologic: No pertinent hx Infectious disease: No pertinent hx ENT: No pertinent hx Renal/: No pertinent hx Endocrine: Diabetes Dermatology: No pertinent hx Past Surgical History Past Surgical History: Arthroscopy (L Knee), Other Family History Family History: High Cholestrol, Hypertension Social History Smoke: 1 pack per day ALCOHOL: rare Drugs: None Current Problem List Problem List Problems Medical Problems: (1) Dyspnea Status: Acute Current Medications Current Medications Current Medications Albuterol/ Ipratropium (Duoneb) 3 ml 1X ONCE NEB Last administered on 11/30/18at 09:25; Start 11/30/18 at 09:15; Stop 11/30/18 at 09:16; Status DC Levofloxacin/ Dextrose 150 ml @ 100 mls/hr 1X ONCE IV Last administered on 11/30/18at 11:07; Start 11/30/18 at 10:45; Stop 11/30/18 at 12:14 Ondansetron HCl (Zofran) 4 mg PRN Q8HRS PRN IV NAUSEA/VOMITING; Start 11/30/18 at 10:45; Stop 12/01/18 at 10:44 Acetaminophen (Tylenol) 650 mg PRN Q4HRS PRN PO FEVER; Start 11/30/18 at 10:45; Stop 12/01/18 at 10:44 Albuterol/ Ipratropium (Duoneb) 3 ml RTQID NEB ; Start 11/30/18 at 12:00; Stop 12/01/18 at 11:59 Sodium Chloride 1,000 ml @ 1,000 mls/hr 1X ONCE IV Last administered on 11/30/18at 11:07; Start 11/30/18 at 11:15; Stop 11/30/18 at 12:14 Active Scripts Active Levaquin (Levofloxacin) 750 Mg Tablet 1 Tab PO DAILY 10 Days Prednisone (Prednisone) 10 Mg Tablet 10 Mg PO DAILY Take 50 mg (5 pills) daily for 2 days, then take 40 mg (4 pills) daily for 2 days, then take 30 mg (3 pills) daily for 2 days, then take 20 mg (2 pills) daily for 2 days, then take 10 mg for 2 days. Reported Cyclobenzaprine Hcl 10 Mg Tablet 10 Mg PO TID Nexium Capsule (Esomeprazole Magnesium) 40 Mg Capsule.dr 40 Mg PO DAILY07 Hydrocodone-Apap 5-325 (Hydrocodone Bit/Acetaminophen) 1 Each Tablet 2 Each PO PRN Q4HRS Hydrocodone-Apap 5-325 (Hydrocodone Bit/Acetaminophen) 1 Each Tablet 1 Each PO PRN Q4HRS Amaryl (Glimepiride) 4 Mg Tablet 4 Mg PO DAILY Zofran (Ondansetron Hcl) 4 Mg Tablet 4 Mg PO PRN Q4HRS Proair Hfa Inhaler (Albuterol Sulfate) 8.5 Gm Hfa.aer.ad 8.5 Gm IH PRN Q4HRS Alprazolam 0.5 Mg Tab.rapdis 0.5 Mg PO DAILY Allergies Allergies: Coded Allergies: prochlorperazine edisylate (Verified Allergy, Intermediate, Nausea and Vomiting, 04/17/13) prochlorperazine maleate (Verified Allergy, Intermediate, Nausea and Vomiting, 04/17/13) ROS General: YES: Chills, Fatigue, Malaise; No: Night Sweats, Appetite, Other PSYCHOLOGICAL ROS: YES: Anxiety; No: Behavioral Disorder, Concentration difficultie, Decreased libido, Depression, Disorientation, Hallucinations, Hostility, Irritablity, Memory difficulties, Mood Swings, Obsessive thoughts, Physical abuse, Sexual abuse, Sleep disturbances, Suicidal ideation, Other Eyes: No Blurry vision, No Decreased vision, No Double vision, No Dry eyes, No Excessive tearing, No Eye Pain, No Itchy Eyes, No Loss of vision, No Photophobia, No Scotomata, No Uses contacts, No Uses glasses, No Other HEENT: YES: Nasal congestion; No: Heacaches, Visual Changes, Hearing change, Nasal discharge, Oral lesions, Sinus pain, Sore Throat, Epistaxis, Sneezing, Snoring, Tinnitus, Vertigo, Vocal changes, Other ALLERGY AND IMMUNOLOGY: No: Hives, Insect Bite Sensitivity, Itchy/Watery Eyes, Nasal Congestion, Post Nasal Drip, Seasonal Allergies, Other Hematological and Lymphatic: No: Bleeding Problems, Blood Clots, Blood Transfusions, Brusing, Night Sweats, Pallor, Swollen Lymph Nodes, Other ENDOCRINE: No: Breast Changes, Galactorrhea, Hair Pattern Changes, Hot Flashes, Malaise/lethargy, Mood Swings, Palpitations, Polydipsia/polyuria, Skin Changes, Temperature Intolerance, Unexpected Weight Changes, Other Breast: No New/Changing Breast Lumps, No Nipple changes, No Nipple discharge, No Other Respiratory: YES: Cough, Pleuritic Pain, Shortness of breath, SOB with excertion, Sputum Changes, Tachypnea, Wheezing; No: Hemoptysis, Orthopnea, Stridor, Other Cardiovascular: No Chest Pain, No Palpitations, No Orthopnea, No Paroxysmal Noc. Dyspnea, No Edema, No Lt Headedness, No Other Gastrointestinal: Yes Nausea, Yes Vomiting; No Abdominal Pain, No Diarrhea, No Constipation, No Melena, No Hematochezia, No Other Genitourinary: No Dysuria, No Frequency, No Incontinence, No Hematuria, No Retention, No Discharge, No Urgency, No Pain, No Flank Pain, No Other, No , No , No , No , No , No , No Musculoskeletal: No Gait Disturbance, No Joint Pain, No Joint Stiffness, No Joint Swelling, No Muscle Pain, No Muscular Weakness, No Pain In:, No Swelling In:, No Other Neurological: No Behavorial Changes, No Bowel/Bladder ControlChng, No Confusion, No Dizziness, No Gait Disturbance, No Headaches, No Impaired Coord/balance, No Memory Loss, No Numbness/Tingling, No Seizures, No Speech Problems, No Tremors, No Visual Changes, No Weakness, No Other Skin: No Dry Skin, No Eczema, No Hair Changes, No Lumps, No Mole Changes, No Mottling, No Nail Changes, No Pruritus, No Rash, No Skin Lesion Changes, No Other, No Acne Physical Exam General: Alert, Oriented X3, Cooperative, No acute distress HEENT: Atraumatic, PERRLA, EOMI, Mucous membr. moist/pink Lungs: Other (DIffuse wheezing) Heart: S1S2, RRR, no gallops, no murmurs Abdomen: Normal bowel sounds, Soft, No tenderness, No hepatosplenomegaly, No masses Rectal Exam: not examined Extremities: No clubbing, No cyanosis, No edema, Normal pulses, No tenderness/swelling Skin: No rashes, No breakdown, No significant lesion Neuro: Normal gait, Normal speech, Strength at 5/5 X4 ext, Normal tone, Sensation intact, Cranial nerves 3-12 NL, Reflexes 2+ Psych/Mental Status: Mental status NL, Mood NL Vitals Vitals Vital Signs Date Time Temp Pulse Resp B/P (MAP) Pulse Ox O2 Delivery O2 Flow Rate FiO2 11/30/18 09:26 92 Room Air 11/30/18 08:52 98.0 104 24 197/88 (124) 98.0 Labs Labs Laboratory Tests Test 11/30/18 09:08 11/30/18 09:57 White Blood Count 13.5 x10^3/uL (4.0-11.0) Red Blood Count 5.94 x10^6/uL (4.30-5.70) Hemoglobin 17.0 g/dL (13.0-17.5) Hematocrit 50.4 % (39.0-53.0) Mean Corpuscular Volume 85 fL (79-100) Mean Corpuscular Hemoglobin 29 pg (25-35) Mean Corpuscular Hemoglobin Concent 34 g/dL (31-37) Red Cell Distribution Width 14.6 % (11.5-14.5) Platelet Count 255 x10^3/uL (140-400) Neutrophils (%) (Auto) 62 % (31-73) Lymphocytes (%) (Auto) 27 % (24-48) Monocytes (%) (Auto) 8 % (0-9) Eosinophils (%) (Auto) 2 % (0-3) Basophils (%) (Auto) 1 % (0-3) Neutrophils # (Auto) 8.3 x10^3/uL (1.8-7.7) Lymphocytes # (Auto) 3.7 x10^3/uL (1.0-4.8) Monocytes # (Auto) 1.0 x10^3/uL (0.0-1.1) Eosinophils # (Auto) 0.3 x10^3/uL (0.0-0.7) Basophils # (Auto) 0.2 x10^3/uL (0.0-0.2) D-Dimer (Roxane) 0.28 ug/mlFEU (0.00-0.50) Lactic Acid Level 2.1 mmol/L (0.4-2.0) Sodium Level 142 mmol/L (136-145) Potassium Level 3.3 mmol/L (3.5-5.1) Chloride Level 105 mmol/L (98-107) Carbon Dioxide Level 27 mmol/L (21-32) Anion Gap 10 (6-14) Blood Urea Nitrogen 14 mg/dL (8-26) Creatinine 0.8 mg/dL (0.7-1.3) Estimated GFR (Cockcroft-Gault) 101.5 BUN/Creatinine Ratio 18 (6-20) Glucose Level 172 mg/dL (70-99) Calcium Level 9.2 mg/dL (8.5-10.1) Total Bilirubin 0.2 mg/dL (0.2-1.0) Aspartate Amino Transf (AST/SGOT) 15 U/L (15-37) Alanine Aminotransferase (ALT/SGPT) 24 U/L (16-63) Alkaline Phosphatase 103 U/L (46-116) PA-Bhv-Z-Type Natriuretic Peptide 119 pg/mL (0-124) Total Protein 7.9 g/dL (6.4-8.2) Albumin 3.8 g/dL (3.4-5.0) Albumin/Globulin Ratio 0.9 (1.0-1.7) Laboratory Tests Test 11/30/18 09:08 11/30/18 09:57 White Blood Count 13.5 x10^3/uL (4.0-11.0) Red Blood Count 5.94 x10^6/uL (4.30-5.70) Hemoglobin 17.0 g/dL (13.0-17.5) Hematocrit 50.4 % (39.0-53.0) Mean Corpuscular Volume 85 fL (79-100) Mean Corpuscular Hemoglobin 29 pg (25-35) Mean Corpuscular Hemoglobin Concent 34 g/dL (31-37) Red Cell Distribution Width 14.6 % (11.5-14.5) Platelet Count 255 x10^3/uL (140-400) Neutrophils (%) (Auto) 62 % (31-73) Lymphocytes (%) (Auto) 27 % (24-48) Monocytes (%) (Auto) 8 % (0-9) Eosinophils (%) (Auto) 2 % (0-3) Basophils (%) (Auto) 1 % (0-3) Neutrophils # (Auto) 8.3 x10^3/uL (1.8-7.7) Lymphocytes # (Auto) 3.7 x10^3/uL (1.0-4.8) Monocytes # (Auto) 1.0 x10^3/uL (0.0-1.1) Eosinophils # (Auto) 0.3 x10^3/uL (0.0-0.7) Basophils # (Auto) 0.2 x10^3/uL (0.0-0.2) D-Dimer (Roxane) 0.28 ug/mlFEU (0.00-0.50) Lactic Acid Level 2.1 mmol/L (0.4-2.0) Sodium Level 142 mmol/L (136-145) Potassium Level 3.3 mmol/L (3.5-5.1) Chloride Level 105 mmol/L (98-107) Carbon Dioxide Level 27 mmol/L (21-32) Anion Gap 10 (6-14) Blood Urea Nitrogen 14 mg/dL (8-26) Creatinine 0.8 mg/dL (0.7-1.3) Estimated GFR (Cockcroft-Gault) 101.5 BUN/Creatinine Ratio 18 (6-20) Glucose Level 172 mg/dL (70-99) Calcium Level 9.2 mg/dL (8.5-10.1) Total Bilirubin 0.2 mg/dL (0.2-1.0) Aspartate Amino Transf (AST/SGOT) 15 U/L (15-37) Alanine Aminotransferase (ALT/SGPT) 24 U/L (16-63) Alkaline Phosphatase 103 U/L (46-116) ED-Ovs-A-Type Natriuretic Peptide 119 pg/mL (0-124) Total Protein 7.9 g/dL (6.4-8.2) Albumin 3.8 g/dL (3.4-5.0) Albumin/Globulin Ratio 0.9 (1.0-1.7) VTE Prophylaxis Ordered VTE Prophylaxis Devices: No VTE Pharmacological Prophylaxi: Yes Assessment/Plan Assessment/Plan A/P: Shortness of breath with cough - this appears to be bronchitis failing outpatient therapy. With his h/o NHL and histoplasmosis, still smoking he is at increased risk. Will treat with steroids, check rapid flu and histoplasma antigen. Consult pulm. Doxycycline Smoker - 1.5ppd, counseled on cessation, will place patch Asthma with Bronchitis - aggressive nebs. Pulm consulted Diabetes-Type II - will placed on sliding scale, cont metformin GERD - will treat High Cholesterol - cont statin Hypertension - hold lisinopril. Treat otherwise H/o NHL in remission - has had f/u in the past 2 years. Will monitor H/o histoplasmosis with fibrosing mediastinitis - will check histoplasma antigen in urine SIRS - tachycardia and leukocytosis with acute bronchitis that is likely viral but high risk for bacterial he was given empiric antibiotics and IVF. F/u lactate ordered. Monitor Hypokalemia - will replace PO and IV, check mag level. Lactic acidosis - likely related to sepsis, will trend FEN - ADA diet PPX - lovenox FULL CODE Dispo - inpatient med/surg for acute bronchitis with sepsis. BERNICE COLEMAN MD Nov 30, 2018 11:31
[2018-11-30] MEDS ORDERED: POTASSIUM CHLORIDE 20 MEQ TABLET.ER. PO ONE (12:15)
[2018-11-30] MEDS ORDERED: IBUP-1060 PO (14:21)
[2018-11-30] MEDS ORDERED: CRESTOR20 MG PO (14:21)
[2018-11-30] MEDS ORDERED: PIOG15TA42 PO (14:21)
[2018-11-30] MEDS ORDERED: METF10007 PO (14:21)
[2018-11-30] MEDS ORDERED: LISI-334 PO (14:21)
[2018-11-30] MEDS ORDERED: ASPI-630 PO (14:21)
[2018-11-30] MEDS ORDERED: ALBUTEROL SULFATE 2.5 MG/3 ML NEBU. INH PRN (14:45)
[2018-11-30] MEDS ORDERED: LORazepam 0.5 MG TABLET PO PRN (14:45)
[2018-11-30] MEDS ORDERED: CYCLOBENZAPRINE 10 MG TABLET. PO PRN (14:45)
[2018-11-30] MEDS ORDERED: ONDANSETRON ODT 4 MG TAB.RAPDIS. PO PRN (15:00)
[2018-11-30] MEDS ORDERED: DEXTROSE 50% 25 GM / 50ML DISP.SYRIN. IV PRN (15:45)
[2018-11-30] MEDS: NICOTINE 21MG PATCH. TD SCH (15:49)
[2018-11-30] MEDS: methylPREDNISolone SOD SUCC PF 40 MG/ML VIAL. IV SCH ×2 (15:49→20:52)
[2018-11-30] MEDS: IPRATRPIUM/ALBUTEROL 0.5/2.5MG 3 ML NEBU. NEB SCH ×2 (15:49→20:00)
[2018-11-30] MEDS ORDERED: IBUPROFEN 400 MG TABLET. PO PRN (16:00)
[2018-11-30] MEDS ORDERED: FLU VAX QS 2019-20 (36MOS+)/PF 0.5 ML SYRINGE. VAX IM ONE (16:00)
[2018-11-30] MEDS ORDERED: MAGNESIUM SULFATE 4GM 100 ML IV ONE (16:00)
[2018-11-30 16:10] LABS: BARBITURATES NEG (NEG); BENZODIAZEPINES NEG (NEG); CANNABINOIDS NEG (NEG); COCAINE NEG (NEG); METHADONE NEG (NEG); OPIATES POS (NEG); PHENCYCLIDINE NEG (NEG)
[2018-11-30 16:11] LABS: AMPHETAMINE/METHAMPHETAMINE NEG (NEG)
[2018-11-30] MEDS ORDERED: ENOXAPARIN 40 MG/0.4 ML SYRINGE. SQ SCH (17:00)
[2018-11-30 17:03] LABS: INFLUENZA A PATIENT NEGATIVE (NEGATIVE); INFLUENZA B PATIENT NEGATIVE (NEGATIVE)
[2018-11-30] MEDS: metFORMIN 500 MG TABLET PO SCH (17:06)
[2018-11-30] MEDS: INSULIN LISPRO 300 UNITS/3 ML VIAL. SQ SCH ×2 (17:08→21:01)
[2018-11-30] MEDS: BUDESONIDE 0.5 MG/2 ML NEBU. NEB SCH (20:00)
[2018-11-30] MEDS ORDERED: INSULIN GLARGINE SYRINGE. SQ SCH (21:00)
[2018-11-30] MEDS ORDERED: ATORVASTATIN CALCIUM 40 MG TABLET. PO SCH (21:00)
--- NOTE | 2018-11-30 22:30 | NUR ---
Patient transferred from ICU, resting in bed with call light in reach. Will continue to monitor.
[2018-11-30] MEDS: DOXYCYCLINE HYCLATE 100 MG in IV DEXTROSE 5% 100ML 100 ML IV SCH (23:05)
[2018-12-01 03:00] VITALS: BP 140/87
[2018-12-01 04:56] LABS: BASO % 0 % (0-3); EOS % 0 % (0-3); HEMATOCRIT 46.6 % (39.0-53.0); HEMOGLOBIN 15.6 g/dL (13.0-17.5); LYMPH # 1.4 x10^3/uL (1.0-4.8); LYMPH % 8 % (24-48); MEAN CORPUSCULAR HEMOGLOBIN 28 pg (25-35); MEAN CORPUSCULAR HGB CONC 34 g/dL (31-37); MEAN CORPUSCULAR VOLUME 85 fL (79-100); MONO # 0.1 x10^3/uL (0.0-1.1); MONO % 1 % (0-9); NEUT # 15.5 x10^3/uL (1.8-7.7); NEUT % 91 % (31-73); PLATELET COUNT 261 x10^3/uL (140-400); RED CELL DISTRIBUTION WIDTH 14.5 % (11.5-14.5)
[2018-12-01 05:12] LABS: ALBUMIN 3.7 g/dL (3.4-5.0); ALBUMIN/GLOBULIN RATIO 0.9 (1.0-1.7); CALCIUM 9.1 mg/dL (8.5-10.1); CREATININE 0.9 mg/dL (0.7-1.3); GFR 88.6; POTASSIUM 3.8 mmol/L (3.5-5.1); TOTAL BILIRUBIN 0.2 mg/dL (0.2-1.0); TOTAL PROTEIN 7.8 g/dL (6.4-8.2)
[2018-12-01] MEDS: methylPREDNISolone SOD SUCC PF 40 MG/ML VIAL. IV SCH (05:44)
[2018-12-01 06:30] LABS: % BANDS 1 % (0-9); % LYMPHS 8 % (24-48); % SEGS 91 % (35-66)
[2018-12-01 06:31] LABS: PLT ESTIMATE ADEQUATE (ADEQUATE)
[2018-12-01 07:00] VITALS: BP 170/86
[2018-12-01] MEDS ORDERED: PANTOPRAZOLE 40 MG TABLET.DR. PO SCH (07:30)
[2018-12-01] MEDS: IPRATRPIUM/ALBUTEROL 0.5/2.5MG 3 ML NEBU. NEB SCH (07:46)
[2018-12-01] MEDS: BUDESONIDE 0.5 MG/2 ML NEBU. NEB SCH (07:46)
[2018-12-01] MEDS: metFORMIN 500 MG TABLET PO SCH (08:06)
[2018-12-01] MEDS: DOXYCYCLINE HYCLATE 100 MG in IV DEXTROSE 5% 100ML 100 ML IV SCH (08:07)
[2018-12-01] MEDS: NICOTINE 21MG PATCH. TD SCH (08:07)
[2018-12-01] MEDS ORDERED: cloNIDine HCL 0.1 MG TABLET PO PRN (08:15)
[2018-12-01] MEDS ORDERED: HYDROcodone/APAP 5/325MG 1 TAB TABLET PO PRN (08:15)
[2018-12-01] MEDS ORDERED: DEXTROSE 50% 25 GM / 50ML DISP.SYRIN. IV PRN (08:15)
[2018-12-01] MEDS ORDERED: ALPRAZolam 0.5 MG TABLET PO SCH (09:00)
[2018-12-01] MEDS ORDERED: ASPIRIN CHEWABLE 81 MG TABLET. PO SCH (09:00)
[2018-12-01] MEDS ORDERED: GLIMEPIRIDE 2 MG TABLET. PO SCH (09:00)
[2018-12-01] MEDS ORDERED: PIOGLITAZONE 15 MG TABLET. PO SCH (09:00)
[2018-12-01] MEDS ORDERED: Nicotine 21MG TD (10:11)
[2018-12-01] MEDS ORDERED: DOXY-96 PO (10:11)
[2018-12-01] MEDS ORDERED: BUDE180A IH (10:11)
[2018-12-01] MEDS ORDERED: LISI-334 PO (10:11)
[2018-12-01] MEDS ORDERED: XOPENEX1.25 MG/3 NEB (10:11)
--- NOTE | 2018-12-01 10:16 | PDOC3 ---
Discharge Summary Visit Information Date of Admission: Nov 30, 2018 Date of Discharge: Dec 01, 2018 Admitting Diagnosis Comment: CAP, smoker on leidy patch ho NHL in remission - has had f/u in the past 2 years. H/o histoplasmosis with fibrosing mediastinitis GERD, DM, anxiety NOS- chronic stable Final Diagnosis Problems Medical Problems: (1) Community acquired pneumonia Status: Acute (2) Dyspnea Status: Acute (3) Sepsis Status: Acute Brief Hospital Course Allergies Allergies Coded Allergies Type Severity Reaction Last Updated Verified prochlorperazine edisylate Allergy Intermediate Nausea and Vomiting 04/17/13 Yes prochlorperazine maleate Allergy Intermediate Nausea and Vomiting 04/17/13 Yes Vital Signs Vital Signs Date Time Temp Pulse Resp B/P (MAP) Pulse Ox O2 Delivery O2 Flow Rate FiO2 12/01/18 08:00 Room Air 12/01/18 07:52 100 12/01/18 07:00 97.5 105 16 170/86 (114) 97.5 Lab Results Laboratory Tests Test 11/30/18 09:08 11/30/18 09:57 11/30/18 13:15 11/30/18 15:40 White Blood Count 13.5 x10^3/uL (4.0-11.0) Red Blood Count 5.94 x10^6/uL (4.30-5.70) Hemoglobin 17.0 g/dL (13.0-17.5) Hematocrit 50.4 % (39.0-53.0) Mean Corpuscular Volume 85 fL (79-100) Mean Corpuscular Hemoglobin 29 pg (25-35) Mean Corpuscular Hemoglobin Concent 34 g/dL (31-37) Red Cell Distribution Width 14.6 % (11.5-14.5) Platelet Count 255 x10^3/uL (140-400) Neutrophils (%) (Auto) 62 % (31-73) Lymphocytes (%) (Auto) 27 % (24-48) Monocytes (%) (Auto) 8 % (0-9) Eosinophils (%) (Auto) 2 % (0-3) Basophils (%) (Auto) 1 % (0-3) Neutrophils # (Auto) 8.3 x10^3/uL (1.8-7.7) Lymphocytes # (Auto) 3.7 x10^3/uL (1.0-4.8) Monocytes # (Auto) 1.0 x10^3/uL (0.0-1.1) Eosinophils # (Auto) 0.3 x10^3/uL (0.0-0.7) Basophils # (Auto) 0.2 x10^3/uL (0.0-0.2) D-Dimer (Roxane) 0.28 ug/mlFEU (0.00-0.50) Lactic Acid Level 2.1 mmol/L (0.4-2.0) 1.6 mmol/L (0.4-2.0) Magnesium Level 1.7 mg/dL (1.8-2.4) Procalcitonin < 0.10 ng/mL (0.00-0.10) Sodium Level 142 mmol/L (136-145) Potassium Level 3.3 mmol/L (3.5-5.1) Chloride Level 105 mmol/L (98-107) Carbon Dioxide Level 27 mmol/L (21-32) Anion Gap 10 (6-14) Blood Urea Nitrogen 14 mg/dL (8-26) Creatinine 0.8 mg/dL (0.7-1.3) Estimated GFR (Cockcroft-Gault) 101.5 BUN/Creatinine Ratio 18 (6-20) Glucose Level 172 mg/dL (70-99) Calcium Level 9.2 mg/dL (8.5-10.1) Total Bilirubin 0.2 mg/dL (0.2-1.0) Aspartate Amino Transf (AST/SGOT) 15 U/L (15-37) Alanine Aminotransferase (ALT/SGPT) 24 U/L (16-63) Alkaline Phosphatase 103 U/L (46-116) IV-Qny-K-Type Natriuretic Peptide 119 pg/mL (0-124) Total Protein 7.9 g/dL (6.4-8.2) Albumin 3.8 g/dL (3.4-5.0) Albumin/Globulin Ratio 0.9 (1.0-1.7) Urine Opiates Screen Pos (NEG) Urine Methadone Screen Neg (NEG) Urine Barbiturates Neg (NEG) Urine Phencyclidine Screen Neg (NEG) Urine Amphetamine/Methamphetamine Neg (NEG) Urine Benzodiazepines Screen Neg (NEG) Urine Cocaine Screen Neg (NEG) Urine Cannabinoids Screen Neg (NEG) Urine Ethyl Alcohol Neg (NEG) Influenza Type A Antigen Negative (NEGATIVE) Influenza Type B Antigen Negative (NEGATIVE) Test 11/30/18 17:05 11/30/18 19:53 12/01/18 04:00 12/01/18 07:57 Glucose (Fingerstick) 313 mg/dL (70-99) 242 mg/dL (70-99) 290 mg/dL (70-99) White Blood Count 17.0 x10^3/uL (4.0-11.0) Red Blood Count 5.50 x10^6/uL (4.30-5.70) Hemoglobin 15.6 g/dL (13.0-17.5) Hematocrit 46.6 % (39.0-53.0) Mean Corpuscular Volume 85 fL (79-100) Mean Corpuscular Hemoglobin 28 pg (25-35) Mean Corpuscular Hemoglobin Concent 34 g/dL (31-37) Red Cell Distribution Width 14.5 % (11.5-14.5) Platelet Count 261 x10^3/uL (140-400) Neutrophils (%) (Auto) 91 % (31-73) Lymphocytes (%) (Auto) 8 % (24-48) Monocytes (%) (Auto) 1 % (0-9) Eosinophils (%) (Auto) 0 % (0-3) Basophils (%) (Auto) 0 % (0-3) Neutrophils # (Auto) 15.5 x10^3/uL (1.8-7.7) Lymphocytes # (Auto) 1.4 x10^3/uL (1.0-4.8) Monocytes # (Auto) 0.1 x10^3/uL (0.0-1.1) Eosinophils # (Auto) 0.0 x10^3/uL (0.0-0.7) Basophils # (Auto) 0.0 x10^3/uL (0.0-0.2) Segmented Neutrophils % 91 % (35-66) Band Neutrophils % 1 % (0-9) Lymphocytes % 8 % (24-48) Platelet Estimate Adequate (ADEQUATE) Sodium Level 141 mmol/L (136-145) Potassium Level 3.8 mmol/L (3.5-5.1) Chloride Level 104 mmol/L (98-107) Carbon Dioxide Level 24 mmol/L (21-32) Anion Gap 13 (6-14) Blood Urea Nitrogen 13 mg/dL (8-26) Creatinine 0.9 mg/dL (0.7-1.3) Estimated GFR (Cockcroft-Gault) 88.6 BUN/Creatinine Ratio 14 (6-20) Glucose Level 266 mg/dL (70-99) Calcium Level 9.1 mg/dL (8.5-10.1) Total Bilirubin 0.2 mg/dL (0.2-1.0) Aspartate Amino Transf (AST/SGOT) 12 U/L (15-37) Alanine Aminotransferase (ALT/SGPT) 20 U/L (16-63) Alkaline Phosphatase 103 U/L (46-116) Total Protein 7.8 g/dL (6.4-8.2) Albumin 3.7 g/dL (3.4-5.0) Albumin/Globulin Ratio 0.9 (1.0-1.7) Laboratory Tests Test 11/30/18 13:15 11/30/18 15:40 11/30/18 17:05 11/30/18 19:53 Lactic Acid Level 1.6 mmol/L (0.4-2.0) Urine Opiates Screen Pos (NEG) Urine Methadone Screen Neg (NEG) Urine Barbiturates Neg (NEG) Urine Phencyclidine Screen Neg (NEG) Urine Amphetamine/Methamphetamine Neg (NEG) Urine Benzodiazepines Screen Neg (NEG) Urine Cocaine Screen Neg (NEG) Urine Cannabinoids Screen Neg (NEG) Urine Ethyl Alcohol Neg (NEG) Influenza Type A Antigen Negative (NEGATIVE) Influenza Type B Antigen Negative (NEGATIVE) Glucose (Fingerstick) 313 mg/dL (70-99) 242 mg/dL (70-99) Test 12/01/18 04:00 12/01/18 07:57 White Blood Count 17.0 x10^3/uL (4.0-11.0) Red Blood Count 5.50 x10^6/uL (4.30-5.70) Hemoglobin 15.6 g/dL (13.0-17.5) Hematocrit 46.6 % (39.0-53.0) Mean Corpuscular Volume 85 fL (79-100) Mean Corpuscular Hemoglobin 28 pg (25-35) Mean Corpuscular Hemoglobin Concent 34 g/dL (31-37) Red Cell Distribution Width 14.5 % (11.5-14.5) Platelet Count 261 x10^3/uL (140-400) Neutrophils (%) (Auto) 91 % (31-73) Lymphocytes (%) (Auto) 8 % (24-48) Monocytes (%) (Auto) 1 % (0-9) Eosinophils (%) (Auto) 0 % (0-3) Basophils (%) (Auto) 0 % (0-3) Neutrophils # (Auto) 15.5 x10^3/uL (1.8-7.7) Lymphocytes # (Auto) 1.4 x10^3/uL (1.0-4.8) Monocytes # (Auto) 0.1 x10^3/uL (0.0-1.1) Eosinophils # (Auto) 0.0 x10^3/uL (0.0-0.7) Basophils # (Auto) 0.0 x10^3/uL (0.0-0.2) Segmented Neutrophils % 91 % (35-66) Band Neutrophils % 1 % (0-9) Lymphocytes % 8 % (24-48) Platelet Estimate Adequate (ADEQUATE) Sodium Level 141 mmol/L (136-145) Potassium Level 3.8 mmol/L (3.5-5.1) Chloride Level 104 mmol/L (98-107) Carbon Dioxide Level 24 mmol/L (21-32) Anion Gap 13 (6-14) Blood Urea Nitrogen 13 mg/dL (8-26) Creatinine 0.9 mg/dL (0.7-1.3) Estimated GFR (Cockcroft-Gault) 88.6 BUN/Creatinine Ratio 14 (6-20) Glucose Level 266 mg/dL (70-99) Calcium Level 9.1 mg/dL (8.5-10.1) Total Bilirubin 0.2 mg/dL (0.2-1.0) Aspartate Amino Transf (AST/SGOT) 12 U/L (15-37) Alanine Aminotransferase (ALT/SGPT) 20 U/L (16-63) Alkaline Phosphatase 103 U/L (46-116) Total Protein 7.8 g/dL (6.4-8.2) Albumin 3.7 g/dL (3.4-5.0) Albumin/Globulin Ratio 0.9 (1.0-1.7) Glucose (Fingerstick) 290 mg/dL (70-99) Brief Hospital Course Mr. Sparrow is a 53 old white male who has the lung hx as per above (refer to my final dx),admitted by colleague and treated for "Acute bronchitis".HE is feeling 100% better on day # 1 stay, requests to be dcd. CLinically better and stable, I wrote for dozy, pred taper, xopenex (baseline tachy) and leidy patch which he is getting her. BP high, needed to up lisinopril to 20 NO PT needs Home todayDw RN Lina Pt seen and examined Discharge Information Condition at Discharge: Improved, Stable Follow Up: Weeks (pcp re BP and other med issues) Disposition/Orders: D/C to Home Scheduled Albuterol Sulfate (Proair Hfa Inhaler) 8.5 Gm Hfa.aer.ad, 8.5 GM IH PRN Q4HRS, (Reported) Entered as Reported by: Jelani Burris on 04/17/13914 Last Action: Continued on 11/30/181449 by BERNICE COLEMAN MD Alprazolam (Alprazolam) 0.5 Mg Tab.rapdis, 0.5 MG PO DAILY, (Reported) Entered as Reported by: Jelani Burris on 04/17/13914 Last Action: Converted on 12/01/18 08 by MARLA EARLY Aspirin (Aspirin) 81 Mg Tab.chew, 1 TAB PO DAILY for medical management, #30 Ref 3 (Reported) Entered as Reported by: CINDA RAMIREZ on 11/30/18 1421 Last Taken: Unknown Dose on 11/29/18 Last Action: Continued on 11/30/181449 by BERNICE COLEMAN MD Budesonide (Pulmicort Flexhaler) 180 Mcg Aer.pow.ba, 2 PUFF IH BID for soa, #1 Ref 6 Prescribed by: MARLA EARLY on 12/01/18 1011 Doxycycline Hyclate (Doxycycline Hyclate) 100 Mg Tablet., 1 TAB PO BID for CAP, #14 Prescribed by: MARLA EARLY on 12/01/18 1011 Esomeprazole Magnesium (Nexium Capsule) 40 Mg Capsule.dr, 40 MG PO DAILY07, (Reported) Entered as Reported by: Jelani Burris on 04/17/13914 Last Action: Converted on 11/30/181449 by BERNICE COLEMAN MD Glimepiride (Amaryl) 4 Mg Tablet, 8 MG PO DAILY for DM, (Reported) Entered as Reported by: Jelani Burris on 04/17/13914 Last Action: Converted on 12/01/18809 by MARLA EARLY Hydrocodone Bit/Acetaminophen (Hydrocodone-Apap 5-325 ) 1 Each Tablet, 1 EACH PO PRN Q4HRS, (Reported) Entered as Reported by: Jelani Burris on 04/17/13914 Last Action: Continued on 12/01/18809 by MARLA EARLY Hydrocodone Bit/Acetaminophen (Hydrocodone-Apap 5-325 ) 1 Each Tablet, 2 EACH PO PRN Q4HRS, (Reported) Entered as Reported by: Jelani Burris on 04/17/13914 Last Action: HELD on 12/01/18809 by MARLA EARLY Levalbuterol Hcl (Xopenex) 1.25 Mg/3 Ml Vial.neb, 1 VIAL NEB QID for shortness of breath for 30 Days, #120 Ref 0 Prescribed by: MARLA EARLY on 12/01/18 1011 Lisinopril (Lisinopril) 20 Mg Tablet, 20 MG PO HS for FOR HYPERTENSION, #30 Ref 0 Prescribed by: MARLA EARLY on 12/01/18 1011 Metformin Hcl (Metformin Hcl) 1,000 Mg Tablet, 1,000 MG PO BIDWMEALS for DM, (Reported) Entered as Reported by: CINDA RAMIREZ on 11/30/18 142 Last Taken: Unknown Dose on 11/29/18 Last Action: Converted on 11/30/18 1544 by BERNICE COLEMAN MD Ondansetron Hcl (Zofran) 4 Mg Tablet, 4 MG PO PRN Q4HRS, (Reported) Entered as Reported by: Jelani Burris on 04/17/13914 Last Action: Converted on 11/30/181449 by BERNICE COLEMAN MD Pioglitazone Hcl (Actos) 15 Mg Tablet, 1 TAB PO DAILY for Medical management for 30 Days, #30 Ref 0 (Reported) Entered as Reported by: CINDA RAMIREZ on 11/30/18 142 Last Taken: Unknown Dose on 11/29/18 Last Action: Continued on 12/01/18809 by MARLA EARLY Rosuvastatin Calcium (Crestor) 20 Mg Tablet, 20 MG PO HS for FOR CHOLESTEROL, #30 Ref 0 (Reported) Entered as Reported by: CINDA RAMIREZ on 11/30/181420 Last Taken: Unknown Dose on 11/29/18 Last Action: Converted on 11/30/181449 by BERNICE COLEMAN MD [Nicotine 21MG] 1 PATCH PATCH, 1 PATCH TD DAILY for smoking cessation, #10 Prescribed by: MARAL EARLY on 12/01/18 1011 Scheduled PRN Cyclobenzaprine Hcl (Cyclobenzaprine Hcl) 10 Mg Tablet, 10 MG PO PRN BID PRN for Tension headache, (Reported) Entered as Reported by: Jelani Burris on 04/17/13 0915 Last Action: Continued on 11/30/181449 by BERNICE COLEMAN MD Ibuprofen (Ibuprofen) 800 Mg Tablet, 800 MG PO PRN Q4HRS PRN for INFLAMMATION, (Reported) Entered as Reported by: CINDA RAMIREZ on 11/30/181420 Last Action: Converted on 11/30/18 154 by BERNICE COLEMAN MD Discontinued Medications Levofloxacin (Levaquin) 750 Mg Tablet, 1 TAB PO DAILY for 10 Days, #10 Ref 0 Prescribed by: PILO BENITEZ D.O. on 11/29/18 0323 Prednisone (Prednisone ) 10 Mg Tablet, 10 MG PO DAILY, #30 Take 50 mg (5 pills) daily for 2 days, then take 40 mg (4 pills) daily for 2 days, then take 30 mg (3 pills) daily for 2 days, then take 20 mg (2 pills) daily for 2 days, then take 10 mg for 2 days. Prescribed by: HARRY HDEZ MD on 06/09/16 8784 Last Action: HELD on 12/01/18809 by MARLA KING MD Dec 01, 2018 10:16
--- NOTE | 2018-12-01 11:47 | NUR ---
Discharge Note: PT DISCHARGED HOME WITH SELF CARE. PT LEFT FACILITY VIA PRIVATE VEHICLE WITH SPOUSE AT 1102. PT STABLE AND ALERT UPON DISCHARGE. PT PIV REMOVED FROM R AC AND R HAND WITHOUT COMPLICATIONS, BANDAGE APPLIED. PT EDUCATED ABOUT DISCHARGE MEDICATIONS, DISCHARGE INSTRUCTIONS, AND FOLLOW-UP INSTRUCTIONS. PT VOICED NO CONCERNS AT THIS TIME. PT LEFT WITH ALL PERSONAL BELONGINGS. EDGARD CHEEMA [facility] Discharge instructions and discharge home medications reviewed with Patient and a copy given. All questions have been answered and understanding verbalized.
[2018-12-01] MEDS ORDERED: INSULIN LISPRO 300 UNITS/3 ML VIAL. SQ SCH (12:00)
[2018-12-01] MEDS ORDERED: LISINOPRIL 20 MG TABLET PO SCH (21:00)
[2018-12-04 13:13] LABS: HISTOPLASMA AG URINE <0.5 (<0.5 ng/mL)
== END 2018-12-01 12:14 | disposition home or self-care (01) | DRG 871 ==
LOC: ER 08:51 → 1 WEST ICU 10:40 → 5 SOUTH 20:00
PROVIDERS: ADMIT Internal Medicine; ATTEND Internal Medicine
DX: A41.9 Sepsis, unspecified organism (principal); J18.9 Pneumonia, unspecified organism; E11.9 Type 2 diabetes mellitus without complications; E78.00 Pure hypercholesterolemia, unspecified; E78.5 Hyperlipidemia, unspecified; E87.6 Hypokalemia; F17.210 Nicotine dependence, cigarettes, uncomplicated; I10 Essential (primary) hypertension; J20.9 Acute bronchitis, unspecified; J45.909 Unspecified asthma, uncomplicated; K21.9 Gastro-esophageal reflux disease without esophagitis; Z82.49 Family history of ischemic heart disease and other diseases of the circulatory system; Z85.72 Personal history of non-Hodgkin lymphomas; F41.9 Anxiety disorder, unspecified; G89.29 Other chronic pain
CPT/HCPCS: 36415; 71045; 71046; 80053; 80307; 81001; 82962; 83605; 83735; 83880; 84145; 84484; 85007; 85025; 85379; 87040; 87385; 87804; 90471; 90686; 93005; 94640; 94760; 96365; 99406; J1650; J1815; J1956; J2920; J3475; J3490; J7030; J7620; J7626; 99285-25; G0378

== ENCOUNTER 2020-04-13 19:01 | Emergency (ER) | payer MEDICARE ==
[~2020-04-13] VITALS: Ht 180.3 cm; Wt 86.3 kg
[~2020-04-13 19:01] MED LIST changes: +ASPI-630 PO; +BUDE180A IH; +CRESTOR20 MG PO; +DOXY-96 PO; +IBUP-1060 PO; +LISI20TA18 PO; +METF10007 PO; +Nicotine 21MG TD; +PIOG15TA42 PO; +XOPENEX1.25 MG/3 NEB
--- NOTE | 2020-04-13 19:49 | PHYS DOC ---
Past Medical History Past Medical History: Asthma, Bronchitis, Diabetes-Type II, GERD, High Ch olesterol, Hypertension, Other Additional Past Medical Histor: non-hodgkins lymphoma - remission, histopla smosis, back pain Past Surgical History: Tonsillectomy, Other Additional Past Surgical Histo: bilat arthoscopic knee, tumor removal LL back, bronch., portacath, biopsy Smoking Status: Current Every Day Smoker Alcohol Use: None Drug Use: None General Adult EDM: Chief Complaint: MULTIPLE COMPLAINTS HPI: HPI: Patient is a 54 year old male with past medical history of asthma, bronchitis, GERD, and hypertension that presents after 1 week of shortness of breath. He states that 1 week ago he was seen at [facility] for shortness of breath and he was tested for Covid. He tested negative at that time and denies any sick contacts. They did a chest x-ray that showed bronchitis and he was given a Z-Troy. He finished this, was feeling much better, but states that 2 days ago he started to feel worse with a runny nose and congestion. He also states that 2 days ago he started to have left upper quadrant pain. He describes his pain as sharp shooting continuous pain that does not radiate. He states the pain gets worse when he eats and when he lays flat. Nothing makes it better. He denies nausea and vomiting. He states he does have a good appetite and is still eating and drinking well. He states he has not been febrile, denies chills, headache, cough, chest pain, abdominal cramping, diarrhea, constipation, or burning with urination. He states he does have GERD and this pain is different than that. He states that the last time he had pneumonia he felt the pain similar to this and feels that is the same. Review of Systems: Review of Systems: Constitutional: Denies fever or chills. [] Eyes: Denies change in visual acuity. [] HENT: Positive nasal congestion, denies sore throat. [] Respiratory: Denies cough, Positive shortness of breath. [] Cardiovascular: Denies chest pain or edema. [] GI: Positive abdominal pain denies nausea, vomiting, bloody stools or diarrhea. [] : Denies dysuria. [] Musculoskeletal: Denies back pain or joint pain. [] Integument: Denies rash. [] Neurologic: Denies headache, focal weakness or sensory changes. [] Endocrine: Denies polyuria or polydipsia. [] Lymphatic: Denies swollen glands. [] Psychiatric: Denies depression or anxiety. [] Heart Score: Risk Factors: Risk Factors: DM, Current or recent (<one month) smoker, HTN, HLP, family history of CAD, obesity. Risk Scores: Score 0 - 3: 2.5% MACE over next 6 weeks - Discharge Home Score 4 - 6: 20.3% MACE over next 6 weeks - Admit for Clinical Observation Score 7 - 10: 72.7% MACE over next 6 weeks - Early Invasive Strategies Allergies: Allergies: Allergies Coded Allergies Type Severity Reaction Last Updated Verified prochlorperazine edisylate Allergy Intermediate Nausea and Vomiting 04/17/13 Yes prochlorperazine maleate Allergy Intermediate Nausea and Vomiting 04/17/13 Yes Physical Exam: PE: Constitutional: Well developed, well nourished, no acute distress, non-toxic appearance. [] HENT: Normocephalic, atraumatic, bilateral external ears normal, oropharynx moist, no oral exudates, nose normal. [] Eyes: PERRLA, EOMI, conjunctiva normal, no discharge. [] Neck: Normal range of motion, no tenderness, supple, no stridor. [] Cardiovascular:Heart rate regular rhythm, no murmur [] Lungs & Thorax: Bilateral breath sounds clear to auscultation [] Abdomen: Bowel sounds normal, soft, no tenderness, no masses, no pulsatile masses. [] Skin: Warm, dry, no erythema, no rash. [] Back: No tenderness, no CVA tenderness. [] Extremities: No tenderness, no cyanosis, no clubbing, ROM intact, no edema. [] Neurologic: Alert and oriented X 3, normal motor function, normal sensory function, no focal deficits noted. [] Psychologic: Affect normal, judgement normal, mood normal. [] EKG: EKG: [] Radiology/Procedures: Radiology/Procedures: [] Impression: Single view of chest obtained. Elevation of the left hemidiaphragm. Postoperative changes to the mediastinum with surgical clips. Degenerative changes the spine. Mild interstitial prominence is again seen bilaterally and appears similar prior. No definite new region of consolidation IMPRESSION: * Similar appearance of the chest compared to prior without a new region of consolidation Course & Med Decision Making: Course & Med Decision Making Pertinent Labs and Imaging studies reviewed. (See chart for details) [] Was evaluated for chief complaint. Work-up consisted of laboratory analysis radiologic imaging and EKG. Results reviewed and discussed with patient. X-ray without focal infiltrate. ekg- NO Stemi, Trop- negative Treatment included GI cocktail. Patient states pain improved post treatment. Dragon Disclaimer: Dragon Disclaimer: This electronic medical record was generated, in whole or in part, using a voice recognition dictation system. Departure Departure Impression: Primary Impression: Dyspnea Additional Impressions: Viral syndrome Abdominal pain Disposition: 01 DC HOME SELF CARE/HOMELESS Condition: STABLE Referrals: LISA HOLGUIN MD (PCP) DIAMOND JAVED DO Apr 13, 2020 19:49
[2020-04-13] MEDS ORDERED: LIDO:MAALOX 1:1 20 ML SINGLE DOSE. PO PRN (20:00)
--- NOTE | 2020-04-13 20:36 | RAD ---
INDICATION: Reason: shortness of breath / Spl. Instructions: / History: COMPARISON: November 2018 FINDINGS: Single view of chest obtained. Elevation of the left hemidiaphragm. Postoperative changes to the mediastinum with surgical clips. De generative changes the spine. Mild interstitial prominence is again seen bilaterally and appears nithin lar prior. No definite new region of consolidation IMPRESSION: * Similar appearance of the chest compared to prior without a new region of consolidation Electronically signed by: Smooth Butts MD (04/13/2020 8:33 PM) [id number]
[2020-04-13 21:39] LABS: BASO # 0.1 x10^3/uL (0.0-0.2); BASO % 1 % (0-3); EOS # 0.4 x10^3/uL (0.0-0.7); EOS % 4 % (0-3); HEMATOCRIT 45.2 % (39.0-53.0); HEMOGLOBIN 15.5 g/dL (13.0-17.5); LYMPH # 2.6 x10^3/uL (1.0-4.8); LYMPH % 25 % (24-48); MEAN CORPUSCULAR HEMOGLOBIN 29 pg (25-35); MEAN CORPUSCULAR HGB CONC 34 g/dL (31-37); MEAN CORPUSCULAR VOLUME 85 fL (79-100); MONO # 0.9 x10^3/uL (0.0-1.1); MONO % 9 % (0-9); NEUT # 6.5 x10^3/uL (1.8-7.7); NEUT % 62 % (31-73); PLATELET COUNT 232 x10^3/uL (140-400); RED BLOOD COUNT 5.32 x10^6/uL (4.30-5.70); WHITE BLOOD COUNT 10.4 x10^3/uL (4.0-11.0)
[2020-04-13 21:51] LABS: CALCIUM 9.2 mg/dL (8.5-10.1); CREATININE 0.8 mg/dL (0.7-1.3); GFR 101.1
--- NOTE | 2020-04-13 21:54 | EKG ---
[facility] [address] [place] [address] Test Date: 2020-04-13 Test Time: 21:15:39 Pat Name: EDGARD CHEEMA Department: Room: Gender: M Yard Assistant: : 1965 Requested By: DIAMOND JAVED Order Number: [id number] Reading MD: Measurements Intervals [place] Rate: 81 P: 56 ME: 176 QRS: 24 QRSD: 154 T: 12 QT: 386 QTc: 454 Interpretive Statements SINUS RHYTHM RIGHT BUNDLE BRANCH BLOCK RVH WITH REPOLARIZATION ABNORMALITY QRS(T) CONTOUR ABNORMALITY CONSISTENT WITH INFERIOR INFARCT PROBABLY OLD ABNORMAL ECG RI6.02 No previous ECG available for comparison
[2020-04-13 21:57] LABS: ALBUMIN 3.9 g/dL (3.4-5.0); TOTAL BILIRUBIN 0.3 mg/dL (0.2-1.0); TOTAL PROTEIN 7.9 g/dL (6.4-8.2)
[2020-04-13 22:42] VITALS: BP 166/92
== END 2020-04-13 23:13 | disposition home or self-care (01) ==
LOC: ER 19:01
DX: B34.9 Viral infection, unspecified (principal); R10.9 Unspecified abdominal pain; K21.9 Gastro-esophageal reflux disease without esophagitis; J45.909 Unspecified asthma, uncomplicated; I10 Essential (primary) hypertension; E11.9 Type 2 diabetes mellitus without complications; E78.00 Pure hypercholesterolemia, unspecified; F17.200 Nicotine dependence, unspecified, uncomplicated; Z88.8 Allergy status to other drugs, medicaments and biological substances
CPT/HCPCS: 36415; 71045; 80053; 84484; 85025; 93005; 99285-25